=== PATIENT | female | born 1980 | race Two or more races ===

== ENCOUNTER 2025-09-30 13:25 | Emergency (ER) | payer OTHER ==
[~2025-09-30] VITALS: Ht 149.9 cm; Wt 65.9 kg
--- NOTE | 2025-09-30 14:24 | DVH ---
EXAM: XY R KNEE 3V XRAY REASON FOR EXAM: fall TECHNIQUE: AP, oblique, and cross-table lateral views of the right knee are submitted for review. COMPARISON: None FINDINGS: The bones demonstrate normal mineralization. There is no acute fracture or dislocation. There is no significant knee effusion. The soft tissues are grossly unremarkable. IMPRESSION: No acute fracture or dislocation.
[2025-09-30] MEDS: HYDROcodone-ACET 10/325MG TAB PO ONE (15:01)
[2025-09-30] MEDS ORDERED: IBU600T PO (15:21)
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
[2025-09-30 16:41] VITALS: BP 119/57; PULSE 70; RESP 18; TEMP 97.9; O2SAT 92
== END 2025-09-30 17:34 | disposition home or self-care (01) ==
LOC: EDBD 13:25 → ER 13:25
DX: S86.911A Strain of unspecified muscle(s) and tendon(s) at lower leg level, right leg, initial encounter (principal); W19.XXXA Unspecified fall, initial encounter; Y93.89 Activity, other specified; Y92.89 Other specified places as the place of occurrence of the external cause; Y99.0 Civilian activity done for income or pay
CPT/HCPCS: 29505; 73562